=== PATIENT | female | born 1985 | race Caucasian/White ===

== ENCOUNTER 2020-02-21 19:00 | Emergency (ER) | payer OTHER, SELFPAY ==
[2020-02-21 19:17] VITALS: BP 129/74; PULSE 104; RESP 16; TEMP 36.9; O2SAT 100
[2020-02-21 19:26] VITALS: BP 149/92; PULSE 114; RESP 28; O2SAT 100
[2020-02-21] MEDS: ONDANSETRON INJ 4 MG/2 ML VIAL IV PUSH (19:57)
[2020-02-21 19:59] LABS: Basophils Absolute Auto 0.1 K/mm3 (0.0-0.1); Basophils Percent Auto 0.4 % (0.2-1.2); Eosinophils Percent Auto 0.2 % (0-4.4); Hematocrit 40.2 % (37.0-47.0); Hemoglobin 12.7 g/dL (12.0-15.0); Immature Granulocyte Absolute 0.06 K/mm3 (0.00-0.031); Immature Granulocyte Percent A 0.4 % (0-0.5); Lymphocytes Absolute Auto 2.48 K/mm3 (0.9-3.2); Mean Corpuscular HGB Conc 31.6 g/dl (32-36); Mean Corpuscular Hemoglobin 26.2 pg (26-34); Mean Corpuscular Volume 82.9 fl (80-100); Mean Platelet Volume 10.4 fl (7.4-10.4); Monocytes Absolute Auto 0.5 K/mm3 (0.1-0.6); Monocytes Percent Auto 3.5 % (2.6-8.5); Neutrophils Absolute Auto 10.7 K/mm3 (1.3-6.7); Neutrophils Percent Auto 77.5 % (45.5-73.1); Platelet Count Result 457 k/mm3 (150-375); Red Blood Count 4.85 M/mm3 (4.2-5.4); Red Cell Distribution Width 14.6 % (11.5-14.5); White Blood Count 13.8 K/mm3 (4.5-10.0)
[2020-02-21 20:11] LABS: Alanine Aminotransferase 20 U/L (4-35); Albumin Level 4.5 g/dL (3.5-5.1); Alkaline Phosphatase 27 U/L (38-126); Anion Gap 14.3 mmol/L (7-16); Aspartate Amino Transferase 23 U/L (14-36); Bilirubin,Total 0.2 mg/dL (0.2-1.3); Blood Urea Nitrogen 13 mg/dL (7-17); Calcium 9.5 mg/dL (8.4-10.2); Carbon Dioxide 23 mmol/L (22-30); Chloride 105 mmol/L (98-107); Estimated Glomerular Filt Rate 57; Glucose 116 mg/dL (65-105); Lipase 86 U/L (23-300); Potassium 4.3 mmol/L (3.4-5.0); Sodium 138 mmol/L (137-145)
[2020-02-21 21:04] VITALS: PULSE 58; RESP 20; O2SAT 98
--- NOTE | 2020-02-21 21:47 | ED.ABDPAIN ---
HPI - Abdominal Pain General Chief Complaint: Abdominal Pain Stated Complaint: ABD PAIN XTD Time Seen by Provider: 02/21/20 19:27 Source: patient Mode of arrival: ambulatory Limitations: no limitations History of Present Illness HPI narrative: Patient presents with chief complaint of generalized diffuse abdominal discomfort with a few episodes of nausea and vomiting. Patient denies diarrhea or fever. Patient denies eating or drink anything to cause her symptoms. Patient denies history of diverticulitis. Patient denies localization of pain into any quadrant. Patient states that her stomach actually feels better now that she is here. Patient states she had a normal bowel movement over the weekend. Patient states she has a family history of IBS but has not been diagnosed with that herself. Related Data Home Medications Medication Instructions Recorded Confirmed cetirizine [Zyrtec] 10 mg PO DAILY 02/21/20 cholecalciferol (vitamin D3) 02/21/20 fenofibrate nanocrystallized mg PO 02/21/20 levonorgestrel-ethinyl estrad tablet 02/21/20 [Vienva] losartan 02/21/20 metformin mg 02/21/20 omeprazole 02/21/20 Allergies Allergy/AdvReac Type Severity Reaction Status Date / Time amoxicillin [From Augmentin] AdvReac Diarrhea Verified 02/21/20 19:27 clavulanic acid AdvReac Diarrhea Verified 02/21/20 19:27 [From Augmentin] doxycycline AdvReac Diarrhea Verified 02/21/20 19:27 Review of Systems Review of Systems: Narrative: CONSTITUTIONAL: Denies fever, chills, or sweats. EYES: Denies visual changes, redness, or discharge. ENT: Denies rhinorrhea, congestion, sore throat, or otalgia. CARDIOVASCULAR: Denies chest pain, palpitations, or edema. RESPIRATORY: Denies cough or dyspnea. GASTROINTESTINAL: Reports diffuse abdominal pain, nausea, vomiting, denies diarrhea. GENITOURINARY: Denies dysuria or hematuria. SKIN: Denies rash or itching. MUSCULOSKELETAL: Denies back pain, joint pain, or myalgia. NEUROLOGIC: Denies headache, numbness, dizziness, or weakness. PMFSH Social History Social History Gender identity (if verbalized by the patient): Female Exam Narrative: Exam Narrative: GENERAL: Well-appearing, well-nourished, and in no acute distress. Patient smiling and talking without signs of discomfort. Patient obese. HEAD: Normocephalic, atraumatic. EYES: PERRLA and EOMI. ENT: Nares clear, no rhinorrhea or epistaxis. Mucous membranes moist. Oropharynx without tonsillar hypertrophy exudate or other lesions. Bilateral TMs pearly ortiz nonbulging NECK: Supple. No adenopathy or masses. CHEST: Clear to auscultation. No respiratory distress. No wheezes rales or rhonchi HEART: Regular rate and rhythm. ABDOMEN: Soft, nontender with any palpation light or deep negative Joiner sign negative tenderness at McBurney's point., nondistended, normal active bowel sounds. EXTREMITIES: Normal range of motion. No edema. SKIN: Warm, dry, no rash. NEURO: No focal deficits. Alert and oriented x3. PSYCH: Normal mood and affect. Course Vital Signs Vital signs: Vital Signs Temperature 98.5 F 02/21/20 19:17 Pulse Rate 104 H 02/21/20 19:17 Respiratory Rate 16 02/21/20 19:17 Blood Pressure 129/74 02/21/20 19:17 Pulse Oximetry 100 02/21/20 19:17 Temperature 98.5 F 02/21/20 19:17 Pulse Rate 58 L 02/21/20 21:04 Respiratory Rate 20 02/21/20 21:04 Blood Pressure 149/92 H 02/21/20 19:26 Pulse Oximetry 98 02/21/20 21:04 MDM - Abdominal Pain MDM Narrative Medical decision making narrative: Patient states that she does not want to provide a urine sample. Informed patient that she has slightly elevated white blood cell count so I wanted to evaluate for UTI. Patient denies urinary symptoms so she does not feel that she needs treatment for it. Patient states that she wants to be discharged home she will follow with her primary care regarding her symptoms. Patient states that her abdominal discomfort kessler
[2020-02-21 22:17] VITALS: BP 128/61; PULSE 98; RESP 21; TEMP 37.1; O2SAT 100
== END 2020-02-21 22:18 | disposition home or self-care (01) ==
PROVIDERS: Physician Assistant; Emergency Provider Emergency Medicine
DX: R10.84 Generalized abdominal pain (principal)
CPT/HCPCS: 36415; 80053; 83690; 85025; 96374; 99284; J2405

== ENCOUNTER 2020-03-02 08:17 | Outpatient (CLI) | payer OTHER, SELFPAY ==
--- NOTE | ~2020-03-02 | US_ITS ---
EXAMINATION: US right upper quadrant DATE: 03/02/2020 09:07 INDICATION: Right upper quadrant abdominal pain. TECHNIQUE: Multiple grayscale and Doppler ultrasound images of the abdomen were obtained. COMPARISON: None FINDINGS: The visualized portions of the head, body, and tail of the pancreas are normal. The liver d emonstrates diffuse steatosis. There are gallstones in the gallbladder, which is normal in size. No g allbladder wall thickening or sonographic Joiner sign. The common duct is normal and measures 4 mm. IMPRESSION: 1. Cholelithiasis. No evidence of acute cholecystitis. 2. Diffuse hepatic steatosis. Reviewed, dictated and finalized at location B.
== END 2020-03-02 08:18 | disposition home or self-care (01) ==
DX: R10.11 Right upper quadrant pain (principal); K80.20 Calculus of gallbladder without cholecystitis without obstruction; K76.0 Fatty (change of) liver, not elsewhere classified
CPT/HCPCS: 76705